=== PATIENT | male | born 1975 | race Hispanic/Latino ===

== ENCOUNTER 2021-06-15 00:17 | Emergency (ER) | payer MEDICARE ==
[~2021-06-15] VITALS: Ht 170.2 cm; Wt 99.8 kg
[2021-06-15 01:03] VITALS: BP 114/88
== END 2021-06-15 01:00 | disposition home or self-care (01) ==
LOC: EDH 00:17
DX: T85.698A Other mechanical complication of other specified internal prosthetic devices, implants and grafts, initial encounter (principal); Y83.8 Other surgical procedures as the cause of abnormal reaction of the patient, or of later complication, without mention of misadventure at the time of the procedure; Y92.89 Other specified places as the place of occurrence of the external cause
CPT/HCPCS: 99281